=== PATIENT | female | born 1925 | race American Indian/Alaskan Native ===

== ENCOUNTER 2016-07-23 11:17 | Outpatient (CLI) | payer MEDICARE ==
[2016-07-23] MEDS ORDERED: NACL ONE (13:16)
--- NOTE | 2016-07-23 14:20 | Cat Scan Report ---
CT CHEST WITH AND WITHOUT CONTRAST INDICATION: Left lower lobe infiltrate. COMPARISON: None similar. FINDINGS: Pre-and post contrast chest CT demonstrates mild cardiomegaly. Extensive atherosclerotic aortic and coronary calcifications. Otherwise unremarkable great vessels. Patent central airway. No effusions or size significant adenopathy. Normal imaged thyroid size with few small hypodensities measuring up to 4 mm on the left, axial image 18, series 3. Approximately 1.8 cm peripherally calcified left upper breast mass. Slight biapical scarring/pleural thickening. Mild right middle lobe, lingular and bibasilar/left lower lobe scarring. A 5 mm noncalcified peripheral nodule in the right upper lobe inferiorly also incidentally seen, axial image 81, possibly postinflammatory. Slight nonspecific distal esophageal wall prominence/thickening, not excluded for gastroesophageal reflux and/or hiatal hernia, amongst others. No significant abnormality in the included upper abdomen. Severe T11 compression fracture with mild retropulsion of its posterosuperior margin as on sagittal image 82, series 202 with possible spinal stenosis/cord compression. 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 Bilateral shoulder degenerative changes as well, left greater than right. CONCLUSION: 1. No acute chest CT abnormality with various incidental findings, including mild cardiomegaly, extensive atherosclerotic calcifications, mild scarring in the lungs and few bony degenerative changes, including severe T11 compression fracture, amongst others, as above. Please correlate. 2. A 5 mm peripheral right upper lobe nodule incidentally noted, as described. Direct comparison with similar prior imaging would be very helpful to assure stability. Otherwise, periodic CT followup, depending on patient's risk categorization, may be undertaken over next 2 years to prove benignity. Thank you for the opportunity to participate in this patient's care.
== END 2016-07-23 11:18 | disposition home or self-care (01) ==
LOC: CT 11:17
PROVIDERS: ATTEND Internal Medicine
DX: R91.8 Other nonspecific abnormal finding of lung field (principal); I51.7 Cardiomegaly; I70.0 Atherosclerosis of aorta; I25.10 Atherosclerotic heart disease of native coronary artery without angina pectoris; N63 Unspecified lump in breast; M48.54XA Collapsed vertebra, not elsewhere classified, thoracic region, initial encounter for fracture; M47.814 Spondylosis without myelopathy or radiculopathy, thoracic region; M25.78 Osteophyte, vertebrae; M19.012 Primary osteoarthritis, left shoulder; M19.011 Primary osteoarthritis, right shoulder; R91.1 Solitary pulmonary nodule
CPT/HCPCS: 36415; 71270; 82565; 84520; Q9967